=== PATIENT | female | born 1960 | race Caucasian/White ===

== ENCOUNTER 2022-09-25 09:01 | Outpatient (CLI) | payer SELFPAY ==
[2022-09-25 10:26] LABS: Cholesterol* 278 mg/dL (90-199)
[2022-09-25 10:27] LABS: Glucose* 109 mg/dL (60-115); HDL Cholesterol* 68 mg/dL (>=50); LDL Cholesterol Calculated 191 mg/dL (<100); Triglycerides* 97 mg/dL (40-149)
== END 2022-09-25 09:02 | disposition home or self-care (01) ==
LOC: NFLDREF 09:02
PROVIDERS: Visit Provider Obstetrics & Gynecology
DX: Z13.1 Encounter for screening for diabetes mellitus (principal); Z13.6 Encounter for screening for cardiovascular disorders
CPT/HCPCS: 80061; 82947

== ENCOUNTER 2023-11-05 17:57 | Inpatient (IN) | payer OTHER, SELFPAY ==
[2023-11-05 18:02] VITALS: BP 149/100; PULSE 88; RESP 16; TEMP 36.8; O2SAT 98; BMI 22.9
--- NOTE | 2023-11-05 19:20 | CT_ITS ---
Final Report Patient: ALANA CASTAÑEDA Facility:?[facility] Patient ID:?[id number] Site Patient ID:?[id number]. Site :?1960 Study:?CT HEAD W/O-11/05/2023 7:52:18 PM Ordering Physician:PAPITO Final Report: INDICATION: Fall 1 week ago. COMPARISON: None available. TECHNIQUE: CT of the head without intravenous contrast. Please note that all CT scans at this facility use dose modulation, iterative reconstruction, and/or weight-based dosing when appropriate to reduce radiation dose to as low as reasonably achievable. FINDINGS: The brain is normal in attenuation with preserved burton-white matter differentiation. No hydrocephalus. No mass or mass effect. No intracranial hemorrhage. The orbits and their contents are grossly within normal limits. Intact skull base and cranial vault. Partially imaged right maxillary sinus mucosal thickening. The remainder of the paranasal sinuses and mastoid air cells are clear. IMPRESSION: No evidence of an acute intracranial abnormality. Please note that all CT scans at this facility use dose modulation, iterative reconstruction, and/or weight-based dosing when appropriate to reduce radiation dose to as low as reasonably achievable. Dictated by Vincenzo Jeffery MD @ 11/05/2023 8:06:53 PM (Electronic Signature)
--- NOTE | 2023-11-05 19:20 | CT_ITS ---
Final Report Patient: ALANA CASTAÑEDA Facility:?[facility] Patient ID:?[id number] Site Patient ID:?[id number]. Site :?1960 Study:?CT Spine C-SPINE W/O-11/05/2023 7:53:22 PM Ordering Physician:PAPITO Final Report: INDICATION: Fall 1 week ago. TECHNIQUE: CT cervical spine without contrast. COMPARISON: None. FINDINGS: Vertebrae: Reversal of the cervical lordosis. There are no fractures or suspicious bony lesions. Discs and facet joints: There are akou-ey-aagiobsg degenerative disc changes at C5-6. There are mild multilevel degenerative changes in the facets. Extraspinal findings: Paraspinous soft tissues are unremarkable. IMPRESSION: 1. No sign of acute injury. 2. Welv-ok-mcaubsxi C5-6 degenerative spondylosis. Please note that all CT scans at this facility use dose modulation, iterative reconstruction, and/or weight-based dosing when appropriate to reduce radiation dose to as low as reasonably achievable. Dictated by Vincenzo Jeffery MD @ 11/05/2023 8:12:13 PM (Electronic Signature)
--- NOTE | 2023-11-05 19:37 | ED.HA ---
HPI - Headache General Date Seen: 11/05/23 Chief Complaint: Headache/Migraine Stated Complaint: Migrane, sore neck, high BP Time Seen by Provider: 11/05/23 19:05 Source: patient Mode of arrival: ambulatory Limitations: no limitations History of Present Illness HPI Narrative: Patient is a 63-year-old female presenting to the emergency department for a headache. She states the headache has been going on for the past week but got acutely worse today. She states the headache feels like it is in the back of her head at the base of her skull. Does states she hit her head on a metal globe light after she stood up straight from a bent over position. Since then she also states she has been having some photophobia. She noticed her blood pressure has been high since then also it is our primary care provider yesterday and was started on lisinopril. Since then her blood pressures have been better. Denies, dizziness, fevers, chills, chest pain, shortness of breath, abdominal pain. Does states she has been having some nausea and has vomited multiple times today. Tried to take Zofran but then quickly vomited it back up earlier today. Related Data Home Medications Medication Instructions Recorded Confirmed amlodipine 5 mg tablet 5 mg PO DAILY 11/05/23 11/05/23 lisinopril 10 1 tab PO DAILY 11/05/23 11/05/23 mg-hydrochlorothiazide 12.5 mg tablet ondansetron 4 mg disintegrating 4 mg PO Q6H 11/05/23 11/05/23 tablet Allergies Allergy/AdvReac Type Severity Reaction Status Date / Time amoxicillin Allergy Mild Unknown Verified 11/26/22 16:50 Clavulanate Allergy Mild Unknown Uncoded 11/26/22 16:50 Review of Systems Status of ROS: Reports: 10 or more systems reviewed and unremarkable except as noted in History and below [facility] Medical History Hyperlipidemia ?E78.5 - Hyperlipidemia, unspecified (ICD-10) Family History Father Lewy body dementia Social History Physical activity type: walking and bicycling Physical activity type details: 10,000 steps per day, bike riding in the summer Smoking Status: Never smoker How often do you have a drink containing alcohol: monthly or less How many standard drinks containing alcohol do you have on a typical day: 1 or 2 How often do you have six or more drinks on one occasion: Never AUDIT-C Alcohol total score: 1 Non-prescribed substance use: denies use Caffeine: No Are you now , , , , never or living with a partner: Social isolation score (0-1 are the most socially isolated patients): 0 Do you think of yourself as: straight/heterosexual Are you currently sexually active: No Exam Narrative: Exam Narrative: Const: Well-nourished, Well-developed, in mild distress Eyes: PERRL, no conjunctival injection, and symmetrical lids HENT: Atraumatic external nose and ears. Moist mucous membranes. Neck: Symmetric, trachea midline, No thyromegaly. CVS: RRR, No murmurs or gallops. Peripheral pulses 2+ and equal in all extremities RESP: Unlabored respiratory effort. Clear to auscultation bilaterally. GI: Nontender/Nondistended, No rebound or guarding. MSK:Extremities w/o deformity, Normal Active ROM Skin: Warm, Dry. No rashes or lesions. Neuro: Normal Muscle tone, No focal neurological deficits. Psych: Awake, Alert, & Oriented x3. Appropriate mood and affect. Const: Vital Signs, click to edit/add: Vital Signs - 24 hr 11/05/23 18:02 Temperature 98.2 F Pulse Rate [Pulse Oximeter] 88 Respiratory Rate 16 Blood Pressure [Ri ght Upper Arm] 149/100 H Pulse Oximetry 98 Oxygen Delivery Me thod Room Air Course Vital Signs Vital signs: Initial Vital Signs Temperature 98.2 F 11/05/23 18:02 Temperature Source Temporal Artery Scan 11/05/23 18:02 Pulse Rate 88 11/05/23 18:02 Pulse Rhythm Regular 11/05/23 18:02 Respiratory Rate 16 11/05/23 18:02 Blood Pressure 149/100 H 11/05/23 18:02 Blood Pressure Mean 116 H 11/05/23 18:02 Blood Pressure Position Sitting 11/05/23 18:02 Pulse Oximetry 98 11/05/23 18:02 Oxygen Delivery Method Room Air 11/05/23 18:02 Vital Signs Temperature 98.2 F 11/05/23 18:02 Pulse Rate 88 11/05/23 18:02 Respiratory Rate 16 11/05/23 18:02 Blood Pressure 149/100 H 11/05/23 18:02 Pulse Oximetry 98 11/05/23 18:02 Oxygen Delivery Method Room Air 11/05/23 18:02 Temperature 98.2 F 11/05/23 18:02 Pulse Rate 88 11/05/23 18:02 Respiratory Rate 16 11/05/23 18:02 Blood Pressure 149/100 H 11/05/23 18:02 Pulse Oximetry 98 11/05/23 18:02 Oxygen Delivery Method Room Air 11/05/23 18:02 Medications Administered Medications: Discontinued Medications Generic Name Dose Route Start Last Admin Trade Name Joseloq PRN Reason Stop Dose Admin Diphenhydramine HCl 25 mg 11/05/23 19:19 11/05/23 20:15 Diphenhydramine 50 Mg/Ml Inj IVP 11/05/23 19:20 25 mg ONCE ONE Administration Lactated Ringer's 1,000 mls @ 1,000 mls/hr 11/05/23 19:19 11/05/23 20:15 Lactated Ringers 1000 Ml IV 11/05/23 20:18 1,000 mls/hr .Q1H ONE Administration Ketorolac Tromethamine 15 mg 11/05/23 19:19 11/05/23 20:15 Ketorolac 15 Mg/Ml Inj IVP 11/05/23 19:20 15 mg ONCE ONE Administration Metoclopramide HCl 10 mg 11/05/23 19:19 11/05/23 20:15 Metoclopramide Hcl 5 Mg/Ml Inj IVP 11/05/23 19:20 10 mg ONCE ONE Administration MDM - Headache MDM Narrative Medical decision making narrative: Patient is a 63-year-old female presenting to emergency department for a headache. Well the mechanism action seems relatively minor I will order head imaging and cervical spine imaging as she is having midline tenderness in symptoms have been going on since she hit her head. Will give her a migraine cocktail including Reglan, Toradol, Benadryl, a L of fluids. A well also gets CBC and BMP considering her recent vomiting. Head imaging returned showing no concerning abnormalities. There is some C5-C6 degenerative spondylolysis but this is not where her pain is. Patient is feeling much better after the medications. Nausea has resolved headache has improved but she states. CBC showed no concerning abnormalities. Her BMP returned with a sodium of 121. She states she has never had issues with hyponatremia before that she is aware of. I reviewed her [facility] records were she said she has last got lab done and I cannot find any previous sodium levels. She is otherwise feeling well at this time will be admitted to the hospitalist service. She is agreeable to this plan Lab Data Labs: Lab Results 11/05/23 Range/Units 19:57 WBC 6.47 (4.50-11.00) K/uL RBC 5.36 H (4.00-5.20) m/uL Hgb 15.5 (12.0-16.0) gm/dL Hct 44.2 (33.0-51.0) % MCV 83 (80-100) fL MCH 29 (26-34) pg MCHC 35 (32-36) gm/dL RDW Coeff of Matt 11.7 (11.5-15.5) % Plt Count 284 (140-440) K/uL Neut % (Auto) 84.1 H (42.0-72.0) % Lymph % (Auto) 9.1 L (20-44) % Ulster % (Auto) 6.6 (0.0-11.0) % Eos % (Auto) 0.0 (0.0-7.0) % Baso % (Auto) 0.2 (0.0-3.0) % Neut # (Auto) 5.40 (1.7-7.0) K/uL Lymph # (Auto) 0.60 L (0.90-2.90) K/uL Ulster # (Auto) 0.40 (0.00-0.90) K/UL Eos # (Auto) 0.00 (0.00-0.50) K/uL Baso # (Auto) 0.01 (0.00-0.30) K/uL Abs Immat Gran (auto) 0.00 (0.00-0.30) K/uL Imm/Tot Granulo (auto) 0.0 % Sodium 121 L* (135-149) mmol/L Potassium 3.3 L (3.6-5.1) mmol/L Chloride 85 L (96-114) mmol/L Carbon Dioxide 23 (20-32) mmol/L Anion Gap 13 (7-15) mEq/L BUN 16 (7-30) mg/dL Creatinine 0.6 (0.5-1.5) mg/dL Estimated Creat Clear 45.54 Estimated GFR 101 ml/min Glucose 100 (60-115) mg/dL Calcium 9.6 (8.4-10.6) mg/dL Imaging Data CT scan head: Radiologist's impression: No evidence of an acute intracranial abnormality. Please note that all CT scans at this facility use dose modulation, iterative reconstruction, and/or weight-based dosing when appropriate to reduce radiation dose to as low as reasonably achievable. Dictated by Vincenzo Jeffery MD @ 11/05/2023 8:06:[address] scan cervical spine: Radiologist's impression: 1. No sign of acute injury. 2. Ivod-lz-cyqrajsm C5-6 degenerative spondylosis. Please note that all CT scans at this facility use dose modulation, iterative reconstruction, and/or weight-based dosing when appropriate to reduce radiation dose to as low as reasonably achievable. Dictated by Vincenzo Jeffery MD @ 11/05/2023 8:12:13 PM Discharge Plan Discharge Clinical Impression: Acute hyponatremia Headache Qualifiers: Headache type: unspecified Headache chronicity pattern: acute headache Intractability: not intractable Qualified Code(s): R51.9 - Headache, unspecified Patient Disposition: Admitted As Observation Condition: Improved Prescriptions: No Action amlodipine 5 mg tablet 5 mg PO DAILY lisinopril-hydrochlorothiazide 10-12.5 mg tablet 1 tab PO DAILY ondansetron 4 mg tablet,disintegrating 4 mg PO Q6H Follow Up/Referrals: Provider,Not a Local [Primary Care Provider] - Stand Alone Forms: Social Project Info Instructions
[2023-11-05 20:05] LABS: Basophils Absolute Auto 0.01 K/uL (0.00-0.30); Basophils Percent Auto 0.2 % (0.0-3.0); Hematocrit 44.2 % (33.0-51.0); Hemoglobin* 15.5 gm/dL (12.0-16.0); Lymphocytes Percent Auto 9.1 % (20-44); Mean Corpuscular HGB Conc 35 gm/dL (32-36); Mean Corpuscular Hemoglobin 29 pg (26-34); Mean Corpuscular Volume 83 fL (80-100); Monocytes Percent Auto 6.6 % (0.0-11.0); Neutrophils Percent Auto 84.1 % (42.0-72.0); Platelet Count* 284 K/uL (140-440); RDW Coefficient of Variation % 11.7 % (11.5-15.5); Red Blood Count 5.36 m/uL (4.00-5.20); White Blood Count* 6.47 K/uL (4.50-11.00)
[2023-11-05 20:06] LABS: Slide Review Reflex No
[2023-11-05] MEDS: LACTATED RINGERS 1000 ML 1,000 ML IV (20:15)
[2023-11-05] MEDS: METOCLOPRAMIDE HCL 5 MG/ML INJ 10 MG IVP (20:15)
[2023-11-05] MEDS: KETOROLAC 15 MG/ML inj IVP (20:15)
[2023-11-05] MEDS: diphenhydrAMINE 50 MG/ML inj 25 MG IVP (20:15)
[2023-11-05 20:23] LABS: Chloride* 85 mmol/L (96-114); Potassium* 3.3 mmol/L (3.6-5.1)
[2023-11-05 20:26] LABS: Anion Gap 13 mEq/L (7-15); Carbon Dioxide* 23 mmol/L (20-32); Creatinine* 0.6 mg/dL (0.5-1.5); Est. Creatinine Clearance* 45.54; Estimated Glomerular Filt Rate 101 ml/min
[2023-11-05 20:27] LABS: Blood Urea Nitrogen* 16 mg/dL (7-30); Calcium* 9.6 mg/dL (8.4-10.6); Glucose* 100 mg/dL (60-115)
[2023-11-05 20:34] LABS: Sodium* 121 mmol/L (135-149)
[2023-11-05 21:40] VITALS: BP 198/99; PULSE 67; RESP 16; TEMP 36.8; O2SAT 97; BMI 23.6
[2023-11-05 22:00] VITALS: BP 181/88
[2023-11-05 22:34] VITALS: PULSE 67; RESP 16
[2023-11-05 22:40] LABS: Sodium* 121 mmol/L (135-149)
--- NOTE | 2023-11-05 23:52 | PM.IMHP1 ---
Hospitalist- H&P: HPI History of Present Illness Time Seen by Provider: 22:30 Date Seen: 11/05/23 Chief complaint: Migrane, sore neck, high BP Narrative: Mady Cervantes is a 63 year old female presented through the emergency department for concerns of a recurrent and worsening headache and was found to have hyponatremia. She has no history of hyponatremia. She had a headache on Thanksgiving that was associated with an aura and vomiting. Then about 3 weeks ago she started having headaches again and they have become more frequent and intense. Headache starts in the right occiput and neck. It does not radiate. It is associated with photophobia, nausea, occasionally vomiting, and only 1 time did have an aura. She otherwise does not know that she is going to get a headache until she suddenly has pain. She denies any vision changes other than photophobia. She went through menopause in her late 40s. She did not have migraine headaches when she was younger. 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 Her sister does get migraine headaches. She has tried chiropracty, acupuncture, and herbs, which have offered mild relief. She has had no imaging other than the CT head and neck today. She is feeling a little bit better after getting a migraine cocktail in the emergency department today. Also she notes that for elevated blood pressures she was prescribed amlodipine and lisinopril hydrochlorothiazide yesterday. She took doses yesterday and again this morning. These are completely new medications for her. Review of Systems Status of ROS: Reports: 10 or more systems reviewed and unremarkable except as noted in History and below [facility] Medical History (Updated 11/06/23 @ 00:48 by Chanelle Ron MD) Adenomatous colon polyp ?D12.6 - Benign neoplasm of colon, unspecified (ICD-10) Hyperlipidemia ?E78.5 - Hyperlipidemia, unspecified (ICD-10) Surgical History (Updated 11/05/23 @ 22:15 by Chanelle Ron MD) Hx of colonoscopy ?Z98.890 - Other specified postprocedural states (ICD-10) Family History Father Lewy body dementia Social History (Updated 11/06/23 @ 00:03 by Chanelle Ron MD) Narrative: 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 . Two grown children who do not live nearby. Lifelong nonsmoker. Denies EtOH or recreational drug use. FULL CODE. What is your current living situation?: I presently have a place to live Problems where you live: no known problems Problems where you live details: N/A In the past 12 months, utilities in danger of being shut off: no In past 12 months, lack of transportation kept you from medical appts, meetings, work, or getting things needed for daily living: no In the past 12 mos, have been you worried that your food would run out before you had money to buy more?: never true In the past 12 mos, the food you bought just didn't last and you didn't have money to buy more?: never true Physical activity type: walking and bicycling Physical activity type details: 10,000 steps per day, bike riding in the summer Smoking Status: Never smoker Do you use any of these nicotine containing products: None Second hand tobacco smoke exposure: No How often do you have a drink containing alcohol: monthly or less How many standard drinks containing alcohol do you have on a typical day: 1 or 2 How often do you have six or more drinks on one occasion: Never AUDIT-C Alcohol total score: 1 Non-prescribed substance use: denies use Caffeine: No Are you now , , , , never or living with a partner: Social isolation score (0-1 are the most socially isolated patients): 0 How often does anyone, including family, friends and others, physically hurt you: never How often does anyone, including family, friends and others, insult or talk down to you: never How often does anyone, including family, friends and others, threaten you with harm: never How often does anyone, including family, friends and others, scream or curse at you: never Do you think of yourself as: straight/heterosexual Are you currently sexually active: No service: No Meds Home Medications and Allergies Home Medications Medication Instructions Recorded Confirmed Type amlodipine 5 mg tablet 5 mg PO DAILY 11/05/23 11/05/23 History lisinopril 10 1 tab PO DAILY 11/05/23 11/05/23 History mg-hydrochlorothiazide 12.5 mg tablet ondansetron 4 mg disintegrating 4 mg PO Q6H 11/05/23 11/05/23 History tablet Home Medication Comments: Amlodipine, lisinopril/HCTZ are new medications that she just started today. She takes several [place] herbal supplements: Genitalia complex Lyseum support for eye Uping mika daugherty ayaan rula emanuel. Allergies Allergy/AdvReac Type Severity Reaction Status Date / Time amoxicillin Allergy Mild Unknown Verified 11/26/22 16:50 Clavulanate Allergy Mild Unknown Uncoded 11/26/22 16:50 Exam Narrative: Exam Narrative: General: No acute distress. Laying in a dark room. Awake alert oriented x3. HEENT: Normocephalic atraumatic, pupils equally round and reactive to light and accommodation. Oropharynx clear. Mucous membranes are moist. No cervical lymphadenopathy, thyromegaly or carotid bruits. No JVD. Cardiovascular: Regular rate and rhythm. No murmurs, gallops, or rubs. Chest: No increased work of breathing. Clear to auscultation bilaterally. No crackles or wheezes. Abdomen: Bowel sounds present. Soft, nondistended, nontender. No hepatosplenomegaly or masses. Extremities: No edema, no cyanosis or clubbing. Skin: No jaundice, no pallor, no rashes. Neuro: Grossly intact. No focal deficits. Const: Vital Signs, click to edit/add: Vital Signs - 24 hr 11/05/23 18:02 11/05/23 21:40 11/05/23 21:40 Temperature 98.2 F 98.2 F Pulse Rate [Pulse Oximeter] 88 Pulse Rate [Right Pulse Oximeter] 67 Respiratory Rate 16 16 16 Blood Pressure [Ri ght Upper Arm] 149/100 H Pulse Oximetry 98 97 97 Oxygen Delivery Me thod Room Air Room Air Room Air 11/05/23 22:34 Temperature Pulse Rate [Pulse Oximeter] Pulse Rate [Right Pulse Oximeter] 67 Respiratory Rate 16 Blood Pressure [Ri ght Upper Arm] Pulse Oximetry [facility]: Result Labs Labs: Short CBC 11/05/23 Range/Units 19:57 WBC 6.47 (4.50-11.00) K/uL Hgb 15.5 (12.0-16.0) gm/dL Hct 44.2 (33.0-51.0) % Plt Count 284 (140-440) K/uL BMP 11/05/23 11/05/23 19:57 22:15 Sodium 121 L* 121 L* Potassium 3.3 L Chloride 85 L Carbon Dioxide 23 BUN 16 Creatinine 0.6 Glucose 100 Calcium 9.6 Study: CT HEAD W/O-11/05/2023 7:52:18 PM Ordering Physician: RON Final Report: INDICATION: Fall 1 week ago. COMPARISON: None available. TECHNIQUE: CT of the head without intravenous contrast. Please note that all CT scans at this facility use dose modulation, iterative reconstruction, and/or weight-based dosing when appropriate to reduce radiation dose to as low as reasonably achievable. FINDINGS: The brain is normal in attenuation with preserved burton-white matter differentiation. No hydrocephalus. No mass or mass effect. No intracranial hemorrhage. The orbits and their contents are grossly within normal limits. Intact skull base and cranial vault. Partially imaged right maxillary sinus mucosal thickening. The remainder of the paranasal sinuses and mastoid air cells are clear. IMPRESSION: No evidence of an acute intracranial abnormality. Please note that all CT scans at this facility use dose modulation, iterative reconstruction, and/or weight-based dosing when appropriate to reduce radiation dose to as low as reasonably achievable. Dictated by Vincenzo Jeffery MD @ 11/05/2023 8:06:53 PM (Electronic Signature) Study:?CT Spine C-SPINE W/O-11/05/2023 7:53:22 PM Ordering Physician:PAPITO Final Report: INDICATION: Fall 1 week ago. TECHNIQUE: CT cervical spine without contrast. COMPARISON: None. FINDINGS: Vertebrae: Reversal of the cervical lordosis. There are no fractures or suspicious bony lesions. Discs and facet joints: There are asmf-or-knwxbcws degenerative disc changes at C5-6. There are mild multilevel degenerative changes in the facets. Extraspinal findings: Paraspinous soft tissues are unremarkable. IMPRESSION: 1. No sign of acute injury. 2. Zdps-rg-enpfbjnr C5-6 degenerative spondylosis. Please note that all CT scans at this facility use dose modulation, iterative reconstruction, and/or weight-based dosing when appropriate to reduce radiation dose to as low as reasonably achievable. Dictated by Vincenzo Jeffery MD @ 11/05/2023 8:12:13 PM (Electronic Signature) Assessment and Plan Assessment and plan (1) Acute hyponatremia: Problem comment: - Chronicity and etiology are unclear as patient has not had a sodium level drawn in the past. I don't think one dose of HCTZ in the last 24 hours would have caused this severity of hyponatremia. I have ordered FeNa, but these are send out labs and it may not be accurate since she started HCTZ today before the labs were done. - Admit for slow correction of hyponatremia. NS given in ER did not raise sodium level. Will give 50 cc of hypertonic saline and recheck Na with morning labs. Goal correction is 4-6 increase in Na over 24 hours to prevent central pontine mylenysis. Hold HCTZ. Status: Acute (2) Headache: Problem comment: Recently started having migraine headaches. CT head today was unremarkable. May benefit from outpatient MRI. Status: Acute (3) Hypokalemia: Problem comment: Hold HCTZ. Replace orally. Recheck in the morning. Status: Acute (4) Hypertension: Problem comment: Continue amlodipine. Hold lisinopril/HCTZ. Status: Acute
[2023-11-06] VITALS (7 sets, daily range): BP systolic 119–160; BP diastolic 76–95; PULSE 65–79; RESP 16–189; TEMP 36.2–36.9; O2SAT 94–97
[2023-11-06] MEDS: POTASSIUM BICARB 25 MEQ EFFERVESCENT TAB PO ×3 (00:53→19:22)
[2023-11-06] MEDS: ONDANSETRON ODT 4 MG TAB PO ×3 (00:54→17:59)
[2023-11-06] MEDS: 3 % SODIUM CHLORIDE 500 ml 50 ML 33.33 ML IV (01:00)
[2023-11-06 06:35] LABS: Chloride* 89 mmol/L (96-114); Potassium* 4.1 mmol/L (3.6-5.1)
[2023-11-06 06:37] LABS: Creatinine* 0.7 mg/dL (0.5-1.5); Est. Creatinine Clearance* 45.54; Estimated Glomerular Filt Rate 97 ml/min
[2023-11-06 06:38] LABS: Anion Gap 8 mEq/L (7-15); Blood Urea Nitrogen* 16 mg/dL (7-30); Calcium* 9.3 mg/dL (8.4-10.6); Carbon Dioxide* 25 mmol/L (20-32); Glucose* 88 mg/dL (60-115)
[2023-11-06 06:42] LABS: Sodium* 122 mmol/L (135-149)
--- NOTE | 2023-11-06 07:18 | PC.NURSE ---
End of shift note: Pt alert & oriented x 4 and able to make needs known. She arrived from ED to med/surg unit at 2130 last evening and stated neck pain was 2/10 when asked. She has since been denying pain when asked. Pt?s nausea being treated with scheduled Zofran. Repeat sodium lab result of 121 obtained last evening. Pt transferring/ambulating in room with SBA. She has been continent of bladder and reports last BM of 11/05/23. Blood pressure noted to be 198/99 and 181/88 upon arrival from the ED. Pt noted to c/o migraine in ED. Field Representative updated MD Ron of blood pressure values. Pt has been afebrile throughout the shift. IV to L AC patent and SL after pt received ordered dose of 3% Sodium Chloride. Pt refusing daily weight to be obtained and to wear VENTURA stockings despite encouragement and education. She is transferring/ambulating with SBA in room.
[2023-11-06] MEDS: IBUPROFEN 400 MG TABLET PO ×3 (09:40→20:48)
[2023-11-06] MEDS: SODIUM CHLORIDE 0.9 % (FLUSH) 10 ML SYRINGE 5 ML IVF ×2 (09:41→20:49)
[2023-11-06] MEDS: AMLODIPINE 5 MG TABLET PO (09:41)
[2023-11-06] MEDS: atenoloL 25 MG TABLET 12.5 MG PO (11:11)
[2023-11-06] MEDS: SODIUM CHLORIDE 1 GM TABLET PO ×2 (11:11→17:59)
--- NOTE | 2023-11-06 11:17 | PM.IMPN1 ---
Progress Note: A&P Assessment and plan (1) Acute hyponatremia: Problem details: -without previous measurements on admission 11/05. Essentially the same at 122. Admit level 121. -recent diagnosis of hypertension treated with amlodipine and lisinopril/hydrochlorothiazide. We have continued amlodipine here and added atenolol. -FENA pending. - will repeat 500 mL slow 3% infusion with salt tabs. Continue fluid restriction. Follow labs closely. Status: Acute (2) Headache: Problem details: Recently started having migraine headaches. CT head today was unremarkable. May benefit from outpatient MRI. -could be from hyponatremia, hypertension. Manage symptoms. Status: Acute (3) Hypokalemia: Problem details: -hold hydrochlorothiazide and lisinopril. Replaced orally. 4.1 this morning. Continue to follow. Status: Acute (4) Hypertension: Problem details: Continue amlodipine at 5 mg daily. Hold lisinopril/HCTZ. -started atenolol 12.5 mg daily Status: Acute Subjective Date Seen: 11/06/23 Interval history: Daily Progress Note - Hospital Medicine Day #: 2 CC: severe hyponatriemia, new hypertension, acute on chronic headaches. OVERNIGHT UPDATES FROM STAFF & MED, LAB, IMAGING UPDATES -resting fairly comfortably in a dark room. Giving herself a 2/3 out of 10 for her head pain. She rated yesterday and 8. Her blood pressure has come down nicely, 198/99 yesterday. Apparently in the clinic she was 220/110. -sodium is now 122., 121 on admission. Status post 500 mL of 3% overnight. 1800 mL free water restriction. -head CT and cervical spine CT reviewed from admission, 11/05 Objective: Resting comfortably Vitals: see above Lungs: Clear. Cardiac: S1S2. Neuro: No acute findings. Disposition/Potential discharge - Likely to return to previous living situation. Today I spent 50minutes seeing the patient, reviewing Expanse and EPIC notes/diagnostics, discussing the care plan with our care time that includes social work, PT/OT, pharmacy, RT, senior living and documenting my impressions and plan in the medical record. Exam Const: Vital Signs, click to edit/add: Vital Signs - 24 hr 11/05/23 18:02 11/05/23 21:40 11/05/23 21:40 Temperature 98.2 F 98.2 F Pulse Rate [Pulse Oximeter] 88 Pulse Rate [Right Pulse Oximeter] 67 Respiratory Rate 16 16 16 Blood Pressure [Ri ght Arm] Blood Pressure [Ri ght Upper Arm] 149/100 H Pulse Oximetry 98 97 97 Oxygen Delivery Me thod Room Air Room Air Room Air 11/05/23 21:40 11/05/23 22:00 11/05/23 22:34 Temperature 98.2 F Pulse Rate [Pulse Oximeter] Pulse Rate [Right Pulse Oximeter] 67 67 Respiratory Rate 16 16 Blood Pressure [Ri ght Arm] 198/99 H 181/88 H Blood Pressure [Ri ght Upper Arm] Pulse Oximetry 97 Oxygen Delivery Me thod Room Air 11/06/23 01:00 11/06/23 03:33 11/06/23 07:00 Temperature 97.2 F L 97.3 F L Pulse Rate [Pulse Oximeter] Pulse Rate [Right Pulse Oximeter] 67 65 79 Respiratory Rate 16 16 189 H Blood Pressure [Ri ght Arm] 148/81 H 156/83 H 160/90 H Blood Pressure [Ri ght Upper Arm] Pulse Oximetry 96 96 97 Oxygen Delivery Me thod Room Air Room Air Room Air 11/06/23 07:00 Temperature Pulse Rate [Pulse Oximeter] Pulse Rate [Right Pulse Oximeter] 79 Respiratory Rate 18 Blood Pressure [Ri ght Arm] Blood Pressure [Ri ght Upper Arm] Pulse Oximetry Oxygen Delivery Me thod Labs Labs: Laboratory Results - last 24 hr 11/05/23 11/05/23 11/06/23 19:57 22:15 05:50 WBC 6.47 RBC 5.36 H Hgb 15.5 Hct 44.2 MCV 83 MCH 29 MCHC 35 RDW Coeff of Matt 11.7 Plt Count 284 Neut % (Auto) 84.1 H Lymph % (Auto) 9.1 L [place] % (Auto) 6.6 Eos % (Auto) 0.0 Baso % (Auto) 0.2 Neut # (Auto) 5.40 Lymph # (Auto) 0.60 L [place] # (Auto) 0.40 Eos # (Auto) 0.00 Baso # (Auto) 0.01 Abs Immat Gran (auto) 0.00 Imm/Tot Granulo (auto) 0.0 Sodium 121 L* 121 L* 122 L* Potassium 3.3 L 4.1 Chloride 85 L 89 L Carbon Dioxide 23 25 Anion Gap 13 8 BUN 16 16 Creatinine 0.6 0.7 Estimated Creat Clear 45.54 45.54 Estimated GFR 101 97 Glucose 100 88 Calcium 9.6 9.3 Lab Acknowledgement Test Added
--- NOTE | 2023-11-06 14:53 | PC.NURSE ---
End of Shift: Patient has had a very quiet day. She has laid in bed all shift and requests lights off and door shut at all times. Was up briefly this am to eat 1/2 of her breakfast. She declined at first about eating any lunch but was able to get her to take in some chicken broth is all she would agree to. Will continue to monitor until next shift arrives
[2023-11-06 17:54] LABS: Chloride* 102 mmol/L (96-114); Potassium* 3.5 mmol/L (3.6-5.1); Sodium* 135 mmol/L (135-149)
[2023-11-06 17:57] LABS: Creatinine* 0.7 mg/dL (0.5-1.5); Est. Creatinine Clearance* 45.54; Estimated Glomerular Filt Rate 97 ml/min
[2023-11-06 17:58] LABS: Anion Gap 6 mEq/L (7-15); Blood Urea Nitrogen* 14 mg/dL (7-30); Calcium* 8.8 mg/dL (8.4-10.6); Carbon Dioxide* 27 mmol/L (20-32); Glucose* 88 mg/dL (60-115)
--- NOTE | 2023-11-06 20:28 | PC.NURSE ---
End of Shift ([id number]): Patient pleasant and cooperative. Afebrile. Rating headache /10. Patient tolerating regular diet with no nausea. Up to bathroom with SBA. 3% sodium infusion stopped at 1830 per MD order.
[2023-11-06 22:34] LABS: Potassium* 3.7 mmol/L (3.6-5.1); Sodium* 136 mmol/L (135-149)
[2023-11-07] MEDS: ACETAMINOPHEN 325 MG TABLET PO ×3 (01:20→09:15)
[2023-11-07 03:00] VITALS: BP 147/86; PULSE 84; RESP 18; TEMP 37.1; O2SAT 95
[2023-11-07] MEDS: ONDANSETRON ODT 4 MG TAB PO (04:04)
--- NOTE | 2023-11-07 05:50 | PC.NURSE ---
Shift note: Pt has had adequate sleep. Alert and oriented. Refused Ondansetron at 0000 but requested for it at 0330 for nausea. Vitally stable.
[2023-11-07 06:50] LABS: Chloride* 104 mmol/L (96-114); Potassium* 3.5 mmol/L (3.6-5.1); Sodium* 135 mmol/L (135-149)
[2023-11-07 06:53] LABS: Anion Gap 9 mEq/L (7-15); Blood Urea Nitrogen* 11 mg/dL (7-30); Calcium* 8.9 mg/dL (8.4-10.6); Carbon Dioxide* 22 mmol/L (20-32); Creatinine* 0.6 mg/dL (0.5-1.5); Est. Creatinine Clearance* 45.54; Estimated Glomerular Filt Rate 101 ml/min; Glucose* 99 mg/dL (60-115)
[2023-11-07 07:00] VITALS: BP 183/89; PULSE 83; RESP 18; TEMP 37; O2SAT 95
[2023-11-07] MEDS: atenoloL 25 MG TABLET 12.5 MG PO (09:09)
[2023-11-07] MEDS: SODIUM CHLORIDE 1 GM TABLET PO (09:09)
[2023-11-07] MEDS: AMLODIPINE 5 MG TABLET PO (09:09)
[2023-11-07] MEDS: SODIUM CHLORIDE 0.9 % (FLUSH) 10 ML SYRINGE 5 ML IVF (09:10)
[2023-11-07 11:00] VITALS: BP 124/84; PULSE 79; RESP 18; TEMP 36.8; O2SAT 95
--- NOTE | 2023-11-07 11:09 | PM.DS1 ---
DS: Providers Provider Date Seen: 11/07/23 Date of admission: 11/05/23 23:53 Primary care physician: Tommie Brown MD Admitting Clinician: Chanelle Ron MD Attending Physician on discharge: Summer Montes MD [place] [facility] Date of Discharge: 11/07/23 DS: Diagnosis Discharge Diagnosis (1) Acute hyponatremia: Status: Acute Problem details: -without previous measurements on admission 11/05. Admit level 121. Improved to 135 at discharge. -likely related to recent migraine thus not eating and drinking well and antihypertensive medication to include lisinopril/hydrochlorothiazide. (2) Headache: Status: Acute Problem details: Recently started having migraine headaches. CT unremarkable. May benefit from outpatient MRI. -I suspect this is from uncontrolled hypertension. Patient's pain improved with [id number] medications and control of her blood pressure. (3) Hypertension: Status: Acute Problem details: Continue amlodipine at 5 mg daily. Hold lisinopril/HCTZ. -started atenolol 12.5 mg daily, discharged at atenolol 25 mg daily (4) Hypokalemia: Status: Acute Problem details: -improved DS: Summary Hospital Course Hospital Course: FINAL DIAGNOSIS/FOLLOW UP ISSUES: 1. Hyponatremia. Discharge level 135. FENA pending. Likely from poor p.o. intake related to migraine and recent addition of hydrochlorothiazide and lisinopril. 2. Uncontrolled hypertension. We swab to the lisinopril/hydrochlorothiazide for atenolol 25 mg and continued amlodipine of 5 mg 3. Migraine, consider outpatient MRI. CT here was negative. Control blood pressure. BRIEF HOSPITAL COURSE: Patient was admitted for 2 days. Synopsis of acute inpatient issues are outlined above. Chronic medical conditions with notable findings outlined above. DISCHARGE MEDICATIONS: See Reconciled list - SIGNIFICANT CHANGES: Held lisinopril/hydrochlorothiazide Started atenolol 25 mg daily, continued amlodipine at 5 mg daily Specific instructions to the patient and follow-up are outlined below. REVIEW OF SYSTEMS No new chest pain or dyspnea Pain controlled No voiding difficulties Tolerating diet challenge PHYSICAL EXAM: CONSTITUTIONAL: Alert. Insightful. Comfortable. VITAL SIGNS: see record. HEENT: Normocephalic, atraumatic. PERRL, EOMI, conjunctivae pink, no scleral icterus. Ears and nose externally normal. Pharynx normal. NECK: No JVD. No carotid bruit, no thyromegaly, no adenopathy. CHEST: Clear to auscultation bilaterally. HEART: S1 and S2 normal. Edema ABDOMEN: Soft, nontender. Normal bowel sounds. MUSCULOSKELETAL: No gross joint deformity or swelling. NEURO: Cranial nerves intact. Grossly intact. No asymmetric findings. SKIN: No rashes, petechiae, concerning changes PSYCHIATRIC: Mood euthymic. DISPOSITION: Home with friends Time spent on discharge 37 minutes. Time Spent with Patient Time attestation: Total time spent providing and/or coordinating discharge services: Exam Const: Vital Signs, click to edit/add: Vital Signs - 24 hr 11/06/23 13:12 11/06/23 15:00 11/06/23 15:00 Temperature 98.4 F Pulse Rate [Right Pulse Oximeter] 71 71 Respiratory Rate 18 18 Blood Pressure [Ri ght Arm] 150/95 H 147/83 H Pulse Oximetry 94 Oxygen Delivery Me thod Room Air Room Air 11/06/23 19:00 11/06/23 23:00 11/06/23 23:00 Temperature 98.0 F 98.0 F Pulse Rate [Right Pulse Oximeter] 72 78 78 Respiratory Rate 18 18 18 Blood Pressure [Ri ght Arm] 119/76 137/84 Pulse Oximetry 97 94 Oxygen Delivery Me thod Room Air Room Air 11/07/23 03:00 11/07/23 07:00 11/07/23 07:00 Temperature 98.7 F 98.6 F Pulse Rate [Right Pulse Oximeter] 84 83 83 Respiratory Rate 18 18 18 Blood Pressure [Ri ght Arm] 147/86 H 183/89 H Pulse Oximetry 95 95 Oxygen Delivery Me thod Room Air Room Air DS: Data Data Completed and Pending Labs on day of discharge: Labs from last 24 hours 11/07/23 11/06/23 11/06/23 05:40 22:10 17:16 Sodium 135 136 135 Potassium 3.5 L 3.7 3.5 L Chloride 104 102 Carbon Dioxide 22 27 Anion Gap 9 6 L BUN 11 14 Creatinine 0.6 0.7 Estimated Creat Clear 45.54 45.54 Estimated GFR 101 97 Glucose 99 88 Calcium 8.9 8.8 Discharge Plan Discharge Disposition: Home, Self-Care Date of Admission: 11/05/23 23:53 Attending Provider on Discharge: Summer Montes Primary Care Provider: Tommie Brown Condition: Improved Anticipated Discharge Date/Time: 11/07/23 10:28 Discharge Medications: New atenolol 25 mg Tablet 25 mg PO DAILY Qty: 30 0RF Continued amlodipine 5 mg tablet 5 mg PO DAILY ondansetron 4 mg tablet,disintegrating 4 mg PO Q6H PRN Discontinued lisinopril-hydrochlorothiazide 10-12.5 mg tablet 1 tab PO DAILY Discharge Orders: Discharge Order (Routine); Ordered 11/07/23 Ordered By: Summer Montes Patient Education: Hypertension (GEN) Additional Instructions: 1. Record your blood pressure daily. You have two medications at discharge for your blood pressure: amlodipine and atenolol. Bring your readings to Dr. Chapman next week. 2. For migraine: continue tylenol, acupuncture. 3. Have Dr. Chapman check a BMP for potassium and sodium levels next week. Activity Level: Activity as Tolerated Discharge Diet: Regular Follow Up Appointments: Tommie Brown MD [Primary Care Provider] - 11/10/23 10:00 am ( [facility] for follow up appointment. ) Forms: [employer] Info Instructions
--- NOTE | 2023-11-07 11:19 | PC.SOCIAL ---
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 Pt does not currently have health insurance. 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 geothermal sheet metal worker did double check the income limits for medical assistance and shared that with the patient, per her request, but the pt stated again that she makes way too much money to qualify. geothermal sheet metal worker explained that when she gets the bill for this hospital stay to call a patient customer account specialist and ask to set-up a payment plan for her bill. Social work to follow-up as needed.
[2023-11-07 19:48] LABS: Urine Osmolality 252 mOsm/kg (50-800)
[2023-11-08 00:03] LABS: Hours Collected Random hr; Total Volume Random mL
== END 2023-11-07 13:04 | disposition home or self-care (01) | DRG 641 ==
LOC: ED 21:14 → MEDSURG 21:19
PROVIDERS: Family Medicine; Internal Medicine; Admitting Provider Family Medicine; Emergency Provider Student in an Organized Health Care Education/Training Program; PCP Family Medicine; Visit Provider Family Medicine
DX: E87.1 Hypo-osmolality and hyponatremia (principal); E87.6 Hypokalemia; G43.909 Migraine, unspecified, not intractable, without status migrainosus; I10 Essential (primary) hypertension
CPT/HCPCS: 36415; 70450; 72125; 80048; 83930; 83935; 84132; 84295; 84300; 85025; 99283; 99284; A9270; J1200; J1885; J2765; J7120; J7131